=== PATIENT | male | born 1980 | race African-American/Black ===

== ENCOUNTER 2018-09-01 16:16 | Emergency (ER) | payer OTHER ==
[~2018-09-01] VITALS: Ht 170.2 cm; Wt 81.7 kg
[2018-09-01 16:46] LABS: BASOPHILS 0.5 % (0.0-2.0); EOSINOPHILS 0.1 % (0.0-3.0); HEMATOCRIT 44.6 % (42.0-52.0); HEMOGLOBIN 14.9 gm/dL (14.0-18.0); MCH 28.4 pg (26.0-34.0); MCHC 33.5 g/dL (28.0-37.0); MCV 84.7 fL (80.0-100.0); MONOCYTES 6.6 % (1.0-8.0); PLATELET COUNT 300 thou/uL (150-400); POLYS 85.8 % (36.0-66.0); RBC 5.26 mil/uL (4.50-6.00); RDW 14.8 % (10.5-14.5); WBC 11.7 thou/uL (4.0-11.0)
[2018-09-01 16:56] LABS: ANION GAP 16 mmol/L (7-16); BUN 15 mg/dL (7-18); CALCIUM 10.2 mg/dL (8.5-10.1); CHLORIDE 100 mmol/L (98-107); CO2 25 mmol/L (21-32); CREATININE 1.2 mg/dL (0.7-1.3); GLUCOSE 113 mg/dL (74-106); POTASSIUM 3.4 mmol/L (3.5-5.1); SODIUM 141 mmol/L (136-145)
[2018-09-01 17:06] LABS: ALBUMIN 4.7 g/dL (3.4-5.0); LIPASE 69 U/L (73-393); SGOT 34 U/L (15-37); SGPT 46 U/L (30-65); TOTAL BILIRUBIN 0.7 mg/dL (<0.1-1.0); TOTAL PROTEIN 9.1 g/dL (6.4-8.2); TROPONIN-I <0.06 ng/mL (<0.06)
[2018-09-01 19:05] LABS: AMP/METHAMP Negative (Negative); BARBITURATES Negative (Negative); BENZODIAZEPINES Negative (Negative); COCAINE Negative (Negative); METHADONE Negative (Negative); OPIATES Negative (Negative); PCP Negative (Negative)
[2018-09-01 20:58] VITALS: BP 164/98
--- NOTE | 2018-09-03 22:32 | EKG ---
[address] [address] ELECTROCARDIOGRAM REPORT Name: GLADIS LOPEZ Room #: DEP DEMAR Schoreder#: [id number] ������������������ Admission: 09/01/18 ������������������ Attend Phys: Discharge: 09/01/18 ������������������ Date of : 80 Report #: [id number] ����������������������������������������������������������������� [id number] THIS REPORT FOR: //name// [facility] ED Test Date: 2018-09-01 Test Time: 16:45:57 Pat Name: GLADIS LOPEZ Department: Room: Gender: Group Home Supervisor: KKODJOVI : 1980 Requested By: Darian Bobo Order Number: [id number] MD: Ricardo Chew Measurements Intervals [place] Rate: 89 P: 61 CO: 145 QRS: 66 QRSD: 101 T: 45 QT: 387 QTc: 471 Interpretive Statements Sinus rhythm No previous ECG available for comparison Electronically Signed On 09-03-2018 22:32:06 CDT by Ricardo Chew [email or web address] ��������������������������������������������� <ELECTRONICALLY SIGNED> ���������������������������������������� By: Ricardo Chew MD ��������������������������������������������� 09/03/18 2232 [id number] Ricardo Chew MD /CRISTHIAN
== END 2018-09-01 21:00 | disposition home or self-care (01) ==
LOC: ER 16:16
PROVIDERS: Emergency Medicine
DX: F12.188 Cannabis abuse with other cannabis-induced disorder (principal); F17.210 Nicotine dependence, cigarettes, uncomplicated